=== PATIENT | female | born 2000 | race Caucasian/White ===

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

== ENCOUNTER 2020-03-24 17:48 | Emergency (ER) | payer MEDICAID, OTHER ==
--- NOTE | 2020-03-24 18:11 | ER Document Report ---
ED Medical Screen (RME) - General Stated Complaint: CHEST PAIN Time Seen by Provider: 03/24/20 18:03 Primary Care Provider: JOSE GALAN MD [Primary Care Provider] - Follow up as needed Mode of Arrival: Ambulatory Information source: Patient Notes: Otherwise healthy 19-year-old female presents to the emergency department with complaints of chest pain. Patient states chest pain is been intermittent over the last few days, worsening since yesterday. She describes it as a midsternal chest pressure that radiates up to the left chest. She reports pain is worse with breathing. She denies any shortness of breath. She denies any nausea or vomiting. She states the pain comes and goes, she thinks that cold exacerbates the pain. She has never had a PE, she has had no recent travel, she is not on any oral contraceptives and she is an occasional smoker. Heart sounds S1-S2 present, no ectopy noted. Lung sounds clear and equal bilaterally. No acute distress noted. I have greeted and performed a rapid initial assessment of this patient. A comprehensive ED assessment and evaluation of the patient, analysis of test results and completion of the medical decision making process will be conducted by additional ED providers. I have specifically instructed the patient or family members with the patient to immediately return to any nursing staff should anything change in the patient's condition or with their chief complaint. - Related Data Allergies/Adverse Reactions: No Known Allergies Allergy (Verified 05/09/17 21:36) Past Medical History - Immunizations Immunizations up to date: Yes Hx Diphtheria, Pertussis, Tetanus Vaccination: Yes Physical Exam - Vital signs Vitals: Temp Pulse Resp BP Pulse Ox 98.9 F 86 16 129/83 H 100 03/24/20 17:50 03/24/20 17:50 03/24/20 17:50 03/24/20 17:50 03/24/20 17:50 Course - Vital Signs Vital signs: Temp Pulse Resp BP Pulse Ox 98.9 F 86 16 129/83 H 100 03/24/20 17:50 03/24/20 17:50 03/24/20 17:50 03/24/20 17:50 03/24/20 17:50 Doctor's Discharge - Discharge Referrals: JOSE GALAN MD [Primary Care Provider] - Follow up as needed
--- NOTE | 2020-03-24 18:30 | RADIOLOGY REPORT (SQ) ---
EXAM DESCRIPTION: CHEST 2 VIEWS IMAGES COMPLETED DATE/TIME: 03/24/2020 6:23 pm REASON FOR STUDY: CHEST PAIN COMPARISON: None. TECHNIQUE: Frontal and lateral radiographic views of the chest acquired. NUMBER OF VIEWS: Two view. LIMITATIONS: None. FINDINGS: LUNGS AND PLEURA: No opacities, masses or pneumothorax. No pleural effusion. MEDIASTINUM AND HILAR STRUCTURES: No masses or contour abnormalities. HEART AND VASCULAR STRUCTURES: Heart normal size. No evidence for failure. BONES: No acute findings. HARDWARE: None in the chest. OTHER: No other significant finding. IMPRESSION: NO SIGNIFICANT RADIOGRAPHIC FINDING IN THE CHEST. TECHNICAL DOCUMENTATION: JOB ID: [id number] 2010 [employer]- All Rights Reserved Reading location - IP/workstation name: [email or web address]
[2020-03-24 18:53] LABS: ABSOLUTE LYMPHOCYTES (AUTO) 2.7 10^3/uL (0.5-4.7); ABSOLUTE MONOCYTES (AUTO) 1.2 10^3/uL (0.1-1.4); ABSOLUTE NEUT (AUTO) 9.2 10^3/uL (1.7-8.2); BASOPHILS % (AUTO) 0.3 % (0-2); EOSINOPHILS % (AUTO) 0.2 % (0-6); HEMATOCRIT 43.6 % (36.0-47.0); HEMOGLOBIN 14.5 g/dL (12.0-15.5); LYMPHOCYTES % (AUTO) 20.4 % (13-45); MEAN CORPUSCULAR HGB CONC 33.3 g/dL (32.0-36.0); MEAN CORPUSCULAR VOLUME 93 fl (80-97); MONOCYTES % (AUTO) 9.4 % (3-13); PLATELET COUNT 260 10^3/uL (150-450); RED BLOOD COUNT 4.68 10^6/uL (3.72-5.28); RED CELL DISTRIBUTION WIDTH 13.2 % (11.5-14.0); SEGMENTED NEUTROPHILS % (AUTO) 69.7 % (42-78); TOTAL CELLS COUNTED % (AUTO) 100 %; WHITE BLOOD COUNT 13.2 10^3/uL (4.0-10.5)
[2020-03-24 19:06] LABS: ALBUMIN 4.4 g/dL (3.5-5.0); ALKALINE PHOSPHATASE 94 U/L (38-126); ANION GAP 7 (5-19); ASPARTATE AMINO TRANSFERASE 27 U/L (14-36); BILIRUBIN,TOTAL 0.3 mg/dL (0.2-1.3); BLOOD UREA NITROGEN 5 mg/dL (7-20); CALCIUM 9.5 mg/dL (8.4-10.2); CARBON DIOXIDE 29 mmol/L (22-30); CHLORIDE 102 mmol/L (98-107); GLUCOSE 120 mg/dL (75-110); POTASSIUM 3.7 mmol/L (3.6-5.0); TOTAL PROTEIN 7.6 g/dL (6.3-8.2)
[2020-03-24] MEDS ORDERED: ASPIRIN 81 MG TABLET, CHEWABLE PO ONE (19:41)
--- NOTE | 2020-03-24 20:23 | RADIOLOGY REPORT (SQ) ---
EXAM DESCRIPTION: CTA chest with contrast CLINICAL HISTORY: 19 years Female, chest pain COMPARISON: None. TECHNIQUE: Axial images of the chest were performed utilizing intravenous contrast, with sagittal and coronal MIP images and sagittal and coronal reformatted images. This exam was performed according to our departmental dose-optimization program which includes use of Automated Exposure Control, adjustment of the mA and/or kV according to patient size and/or use of iterative reconstruction technique. FINDINGS: Somewhat limited examination due to streak artifact. No evidence of pulmonary embolus. No evidence of aortic dissection. No evidence of pulmonary infiltrate or pleural effusion. No evidence of mediastinal or hilar adenopathy. IMPRESSION: No acute finding.
--- NOTE | 2020-03-24 20:35 | ER Document Report ---
ED General - General Chief Complaint: Chest Pain Stated Complaint: CHEST PAIN Time Seen by Provider: 03/24/20 18:03 Primary Care Provider: STACY OSBORNE MD [ACTIVE STAFF] - Follow up as needed JOSE GALAN MD [Primary Care Provider] - Follow up as needed Mode of Arrival: Ambulatory - [facility] Notes: Patient is a 19-year-old female who presents to the emergency department for evaluation of chest pain. Is been going on intermittently over the last several days. She states she is first noticed it 2 or 3 days ago. It happened while she was lying in a tanning bed. She stated it feels like a "puppy is sitting on her chest.". She states she felt slightly short of breath. The pain was worsened by bending forward, by cold drinks, and by deep breaths. She states the pain resolved after 4 to 5 hours. She states the pain started again last night while she was at rest. Is been constant since then. It waxed and waned in intensity. At its worst she rated a 7-1/2 out of 10. She currently puts it at a 1 out of 10. She states again it is still worsened by moving forward. She is described as a mild heaviness, in the center of her chest with radiation into the left shoulder. She states she may have felt somewhat short of breath with it. No nausea, diaphoresis, near syncope. She never had pain like this in the past. The patient has no personal history of PE, no family history of PE or blood clots. She is never had cancer. She has not had any recent surgeries, no prolonged immobilization. She is not on oral contraceptives. - Related Data Allergies/Adverse Reactions: No Known Allergies Allergy (Verified 05/09/17 21:36) Home Medications: None Past Medical History - General Information source: Patient - Social History Smoking Status: Current Some Day Smoker Family History: Reviewed & Not Pertinent Patient has homicidal ideation: No - Immunizations Immunizations up to date: Yes Hx Diphtheria, Pertussis, Tetanus Vaccination: Yes Review of Systems - Review of Systems Cardiovascular: See HPI Respiratory: See HPI -: Yes All other systems reviewed and negative Physical Exam - Vital signs Vitals: Temp Pulse Resp BP Pulse Ox 98.9 F 86 16 129/83 H 100 03/24/20 17:50 03/24/20 17:50 03/24/20 17:50 03/24/20 17:50 03/24/20 17:50 - Notes Notes: Vital signs reviewed, please refer to chart. Head is normocephalic, atraumatic. Pupils equal round, reactive to light. Neck is supple without meningismus. Heart is regular rate and rhythm. Lungs are clear to auscultation bilaterally. Abdomen is soft, nontender, normoactive bowel sounds throughout. Extremities without cyanosis, clubbing. Posterior calves are nontender. Peripheral pulses are equal. Skin is warm and dry. Patient is awake, alert, neurological exam is nonfocal. Course - Re-evaluation Re-evalutation: 03/24/20 20:32 Patient presents to the emergency department for evaluation. She complains of chest pain. She had EKG and blood work drawn. Her initial EKG was abnormal. I did consult Dr. Osborne, who evaluated the EKG with me as well. He states that no signs of ACS. Given the possible right shift I did order CT angiogram of the chest. Her troponin came back positive at 0.6. Patient is currently pain-free. CT angiogram was unremarkable. Awaiting repeat troponin. Patient was given aspirin, we will continue to monitor. 03/24/20 22:39 Repeat troponin has gone down significantly. Patient is completely chest pain- free. Her repeat EKG is unremarkable. I spoke again with Dr. Osborne. He will follow-up with her in the office on Thursday or Thursday. Pericarditis is still highest in his differential. At this point we have ruled out other significant or emergent conditions that would require admission. I will send her home on NSAIDs and with referral to Dr. Osborne. She is to return to the ED with worsening. - Vital Signs Vital signs: Temp Pulse Resp BP Pulse Ox 98.9 F 86 20 120/72 100 03/24/20 17:50 03/24/20 17:50 03/24/20 22:01 03/24/20 22:00 03/24/20 22:01 - Laboratory Result Diagrams: 03/24/20 18:37 03/24/20 18:37 Laboratory results interpreted by me: 03/24/20 03/24/20 18:37 18:37 WBC 13.2 H Absolute Neuts (auto) 9.2 H BUN 5 L Glucose 120 H - Diagnostic Test Radiology reviewed: Image reviewed, Reports reviewed Radiology results interpreted by me: 03/24/20 20:35 Chest X-Ray 03/24/20 18:08 IMPRESSION: NO SIGNIFICANT RADIOGRAPHIC FINDING IN THE CHEST. Chest/Abdomen CTA 03/24/20 19:41 IMPRESSION: No acute finding. - EKG Interpretation by Me Additional EKG results interpreted by me: 03/24/20 20:36 Initial EKG reveals a sinus mechanism with a rate of 86 bpm. Patient has alternating voltages in multiple leads, lead I varies between upright and isoelectric, altering her QRS axis. Incomplete right bundle branch block. Nonspecific ST changes, but no significant elevation concerning for ischemia. No old studies available for comparison. Repeat EKG is completely different, with a sinus arrhythmia with a rate of 84 bpm. Normal axis and intervals. No acute ST changes concerning for ischemia or infarction. Discharge - Discharge Clinical Impression: Abnormal EKG, Elevated troponin Chest pain Qualifiers: Chest pain type: unspecified Qualified Code(s): R07.9 - Chest pain, unspecified Condition: Stable Disposition: HOME, SELF-CARE Instructions: Chest Pain of Unclear Cause ([facility]) Additional Instructions: At this point, it seems your chest pain is likely due to myopericarditis. Your blood work was abnormal, but has improved. There is no sign of blood clot or blood vessel issue on your CT scan. Your chest x-ray was normal. Your vital signs were perfect. Please follow-up with Dr. Osborne on Thursday or Thursday. He should be contacting you for close follow-up. Take medication as prescribed. If your pain returns, if you develop worsening or new concerning symptoms of any sort, you need to return immediately to the emergency department for evaluation. Prescriptions: Naproxen [Naprosyn] 500 mg PO BID #20 tablet Referrals: JOSE GALAN MD [Primary Care Provider] - Follow up as needed STACY OSBORNE MD [ACTIVE STAFF] - Follow up as needed
[2020-03-24 22:57] VITALS: BP 132/85
--- NOTE | 2020-03-25 08:48 | EKG REPORT ---
SEVERITY:- NORMAL ECG - SINUS ARRHYTHMIA : Confirmed by: Jignesh Monet MD 25-Mar-2020 08:47:39
--- NOTE | 2020-03-25 08:49 | EKG REPORT ---
SEVERITY:- BORDERLINE ECG - SINUS RHYTHM CONSIDER RIGHT VENTRICULAR HYPERTROPHY : Confirmed by: Jignesh Monet MD 25-Mar-2020 08:48:17
== END 2020-03-24 22:59 | disposition home or self-care (01) ==
LOC: ER 17:48
DX: R07.9 Chest pain, unspecified (principal); R06.02 Shortness of breath; I45.10 Unspecified right bundle-branch block; I49.9 Cardiac arrhythmia, unspecified; R79.89 Other specified abnormal findings of blood chemistry; F17.200 Nicotine dependence, unspecified, uncomplicated
CPT/HCPCS: 36415; 71046; 71275; 80053; 83690; 84484; 85025; 93005; 93010; 99285